=== PATIENT | female | born 1970 | race Two or more races ===

== ENCOUNTER 2017-10-30 09:14 | Emergency (ER) | payer OTHER ==
[~2017-10-30] VITALS: Ht 160 cm; Wt 118.8 kg
[2017-10-30] MEDS ORDERED: BENADRYL25 MG (09:30)
[2017-10-30] MEDS ORDERED: NEURONTIN300 MG (09:30)
[2017-10-30] MEDS ORDERED: ATARAX10 MG (09:30)
== END 2017-10-30 10:30 | disposition home or self-care (01) ==
LOC: ER 09:14
DX: J11.1 Influenza due to unidentified influenza virus with other respiratory manifestations (principal); B34.9 Viral infection, unspecified